=== PATIENT | male | born 1960 | race African-American/Black ===

== ENCOUNTER 2017-02-26 15:23 | Emergency (ER) | payer OTHER ==
[~2017-02-26] VITALS: Ht 182.9 cm; Wt 125.7 kg
[~2017-02-26 15:23] MED LIST: ALBUTEROL2.5 MG/0.5 INH; ALLOPURINOL 30300 M2 PO; AMLODIPINE BESY10 MG PO; BRIMONIDINE TAR1 BO1 OP; CLONIDINE HCL0.3 M3 PO; COREG25 MG PO; DORZOLAMIDE HCL10 ML OP; HYDRALAZINE 2525 MG PO; LIPITOR 20 MG T20 M1 PO; METFORMIN HCL500 MG PO; TRAVATAN Z2.5 ML OPHTHALMIC; VASOTEC10 MG PO
[2017-02-26] MEDS ORDERED: VENTOLIN HFA 1818 GM INH (16:27)
[2017-02-26] MEDS ORDERED: ALBUTEROL2.5 MG/31 INH (16:27)
[2017-02-26] MEDS ORDERED: TESSALON PERLE100 MG PO (16:31)
== END 2017-02-26 17:20 | disposition home or self-care (01) ==
LOC: ER 15:23
DX: J06.9 Acute upper respiratory infection, unspecified (principal); I10 Essential (primary) hypertension; E11.9 Type 2 diabetes mellitus without complications; E78.00 Pure hypercholesterolemia, unspecified

== ENCOUNTER 2019-02-22 15:45 | Emergency (ER) | payer OTHER ==
[~2019-02-22] VITALS: Ht 182.9 cm; Wt 127.0 kg
[~2019-02-22 15:45] MED LIST changes: +ALBUTEROL2.5 MG/31 INH; +TESSALON PERLE100 MG PO; +VENTOLIN HFA 1818 GM INH
[2019-02-22] MEDS ORDERED: AUGMENTIN 875-1 EACH PO (17:10)
[2019-02-22] MEDS ORDERED: VENTOLIN HFA 1818 GM INH (17:32)
[2019-02-22 17:49] VITALS: BP 141/83
== END 2019-02-22 17:50 | disposition home or self-care (01) ==
LOC: ER 15:45
DX: J06.9 Acute upper respiratory infection, unspecified (principal); J20.9 Acute bronchitis, unspecified; I10 Essential (primary) hypertension; E11.9 Type 2 diabetes mellitus without complications; E78.5 Hyperlipidemia, unspecified; E78.00 Pure hypercholesterolemia, unspecified

== ENCOUNTER 2019-03-29 17:18 | Inpatient (IN) | payer OTHER ==
[~2019-03-29] VITALS: Ht 182.9 cm; Wt 127.0 kg
--- NOTE | ~2019-03-29 | HC ---
[facility] [place] [address] CONSULTATION Name: NANY LAW Room #: 438-P ADM IN M.R.#: [id number] Admission: 03/29/19 Attend Phys: Irving Rowland Discharge: Date of : 58 Report #: [id number] THIS REPORT FOR: //name// CC: Irving Connolly DATE OF SERVICE: 03/30/2019 HISTORY OF PRESENT ILLNESS: This is a 58-year-old male patient who was seen by me for generalized weakness. History is very poor, both from the patient as well as from the mother. I had seen this patient in the Emergency Room yesterday and I saw this patient today and this is the combined note. He also has edema of both lower extremities. REVIEW OF SYSTEMS: Indicates that this patient has a retinitis pigmentosa which is hereditary and other members of the family has the same. He has a history of hypertension and bronchitis. He is blind. A 14-point review of system was carried out and I am not sure how much weakness is new and how much is old. Otherwise, the history is as described above. PAST MEDICAL HISTORY: Positive for retinitis pigmentosa. FAMILY HISTORY: Positive for retinitis pigmentosa. SOCIAL HISTORY: He lives with his mother. PHYSICAL EXAMINATION: The patient's examination indicate he is alert. He is responsive. He can move all four extremities. His position sense appeared to be intact. There is no meningeal sign. Reflexes appeared to be present. Blood pressure is 173/86, it has been high, respirations 18, pulse is 75. LABORATORY DATA: Indicate hemoglobin of 9.6. His GFR is 58. DIAGNOSTIC DATA: His CT scan has shown question of stroke, but we did an MRI and that does not show any stroke, which is acute. IMPRESSION: I am not sure what the etiology of the patient's weakness in the lower extremities is. He looks about the same as he was last night. Anemia may be playing a part in it. We will check the spine. Spine does have some arthritis, but I am not sure how much it is contributing to her symptoms. We will get an MRI. I do not think the doubt for Guillain-Coalton is very high, but cannot be excluded. I talked to him about the spinal tap and he is not much interested in that, but I will talk to the mom also tomorrow. He will also need checking of a CPK, myasthenia markers to complete the workup. [facility] [address] [place] [address] CONSULTATION Name: NANY LAW Room #: 438-P ADM IN M.R.#: [id number] Admission: 03/29/19 Attend Phys: Irving Rowland Discharge: Date of : 58 Report #: [id number] Time spent about 50 minutes, majority counseling and coordinating. By: [id number] Danie Mayorga MD /nt
--- NOTE | ~2019-03-29 | HC ---
[facility] [place] [address] CONSULTATION Name: NANY LAW Room #: 438-P ADM IN M.R.#: [id number] Admission: 03/29/19 Attend Phys: Irving Rowland Discharge: Date of : 58 Report #: [id number] THIS REPORT FOR: //name// CC: Irving Connolly DATE OF SERVICE: 03/30/2019 HISTORY OF PRESENT ILLNESS: The patient is a 58-year-old -[place] male who was admitted with worsening functional mobility, difficult walking, left leg burning, several falls along with bilateral lower extremity swelling and lower extremity weakness. CT scan showed an age indeterminate left lacunar infarct. He also has acute renal insufficiency superimposed on chronic kidney disease. He has bilateral lower extremity edema, question chronic lymphedema versus venous insufficiency. He is to have an MRI of the brain. PAST MEDICAL HISTORY: Retinitis pigmentosa, diabetes mellitus, hypertension, hyperlipidemia, chronic kidney disease, bronchitis, and exogenous obesity. He is noted to be complete blindness with the retinitis pigmentosa. MEDICATIONS: Please see the full medication listing. ALLERGIES: No known drug allergies. SOCIAL HISTORY: Lives with his mother and 2 sisters who also apparently have retinitis pigmentosa, was premorbidly ambulatory without gait aids including going up and down steps, but again has had a significant decline just prior to his acute hospital admission. REVIEW OF SYSTEMS: Complaints regarding his lower extremity swelling. No current chest pain, shortness of breath, or abdominal discomfort. PHYSICAL EXAMINATION: VITAL SIGNS: Last recorded temperature 98.4, pulse 72, respirations 18, blood pressure 160/78. GENERAL: A 58-year-old obese -[place] male, in no obvious distress. The patient is alert. He has obvious ocular abnormalities consistent with his retinitis. He follows basic commands. HEENT: Facies otherwise appeared symmetric. EXTREMITIES: Functional range of motion of both upper extremities, strength is probably a grade 4-/5. DTRs are trace to 1. Lower extremity, he does have significant distal lower extremity edema. Would grade it at 2+. Appears to have some weakness of the right lower extremity, maybe grade 4-/5 to 4/5. Left lower extremity is a grade 4+/5. NEUROLOGIC: Functionally, he was mod assist sit to stand. Gait was max assist to 18 feet, handheld assistance. [address] [address] CONSULTATION Name: NANY LAW Room #: 438-P [facility] IN M.R.#: [id number] Admission: 03/29/19 Attend Phys: Irving Rowland Discharge: Date of : 58 Report #: [id number] ASSESSMENT: A 58-year-old -[place] male with the following problem list: 1. Left lacunar infarct noted to be age indeterminate. 2. Bilateral lower extremity edema. 3. Acute renal insufficiency superimposed on chronic kidney disease. 4. Retinitis pigmentosa assist with complete blindness. 5. Exogenous obesity. 6. Diabetes mellitus. 7. Hypertension. 8. Elevated cholesterol. PLAN: Plan further evaluation is underway. Note, he is scheduled to have an MRI scan of his brain as well as ultrasound of his carotids. He certainly may benefit from an acute in-hospital inpatient rehabilitation stay as he medically stabilizes. We will be glad to follow along with you regarding his rehab therapy needs. By: [id number] Jerad Pineda MD /PMT
[~2019-03-29 17:18] MED LIST changes: +AUGMENTIN 875-1 EACH PO
[2019-03-29 17:38] VITALS: BP 147/72
[2019-03-29 18:01] LABS: ABSOLUTE NEUTROPHILS 5.9 thou/uL (1.4-8.2); BASOPHILS 0.6 % (0.0-2.0); EOSINOPHILS 2.2 % (0.0-3.0); HEMATOCRIT 31.8 % (42.0-52.0); HEMOGLOBIN 10.3 gm/dL (14.0-18.0); MCH 29.5 pg (26.0-34.0); MCHC 32.5 g/dL (28.0-37.0); MCV 90.6 fL (80.0-100.0); PLATELET COUNT 375 thou/uL (150-400); POLYS 65.2 % (36.0-66.0); RBC 3.51 mil/uL (4.50-6.00); WBC 9.1 thou/uL (4.0-11.0)
[2019-03-29 18:10] LABS: ANION GAP 9 mmol/L (7-16); BUN 29 mg/dL (7-18); CALCIUM 9.9 mg/dL (8.5-10.1); CHLORIDE 100 mmol/L (98-107); CO2 26 mmol/L (21-32); CREATININE 1.8 mg/dL (0.7-1.3); GLUCOSE 163 mg/dL (74-106); POTASSIUM 4.5 mmol/L (3.5-5.1); SODIUM 135 mmol/L (136-145)
[2019-03-29 18:19] LABS: TROPONIN-I <0.06 ng/mL (<0.06)
[2019-03-29 19:11] LABS: URINE BILIRUBIN NEGATIVE (Negative); URINE BLOOD NEGATIVE (Negative); URINE CLARITY CLEAR; URINE COLOR YELLOW; URINE GLUCOSE-RANDOM* NEGATIVE (Negative); URINE KETONES NEGATIVE (Negative); URINE LEUKOCYTES-REFLEX NEGATIVE (Negative); URINE NITRITE-REFLEX NEGATIVE (Negative); URINE PROTEIN (DIPSTICK) NEGATIVE (Negative); URINE UROBILINOGEN 0.2 E.U./dl (0.2-1.0)
[2019-03-29 21:47] VITALS: BP 154/81
--- NOTE | 2019-03-29 22:16 | NUR ---
HAND OFF SENT TO FLOOR
[2019-03-29 22:40] VITALS: BP 154/81
[2019-03-29 22:41] VITALS: BP 145/84
[2019-03-30] MEDS ORDERED: FUROSEMIDE 40 M40 MG PO (01:04)
--- NOTE | 2019-03-30 02:02 | NUR ---
PT ARRIVED ON THE UNIT @2300 MOM AT BEDSIDE FOR THE NIGHT.A&OX4 WITH BILATERAL VISSION LOSS. ADMISSION DONE AND DOC. BLE EDEMA NOTED 4+ NON PITTING. SCD'S APPILED. PT ON BEDREST. IV INTACT IN RT A/C AND FLUIDS INFUSING. URINAL AT BEDSIDE. FALL PREC INPLACE AND HOURLY ROUNDING DONE WILL CONT WITH POC TILL EOS
[2019-03-30 03:15] VITALS: BP 163/93
[2019-03-30 05:15] LABS: HEMATOCRIT 29.7 % (42.0-52.0); HEMOGLOBIN 9.6 gm/dL (14.0-18.0); MCH 29.5 pg (26.0-34.0); MCHC 32.4 g/dL (28.0-37.0); RBC 3.27 mil/uL (4.50-6.00); RDW 15.1 % (10.5-14.5); WBC 8.1 thou/uL (4.0-11.0)
[2019-03-30 05:23] LABS: ALBUMIN 3.3 g/dL (3.4-5.0); CALCIUM 9.4 mg/dL (8.5-10.1); CREATININE 1.5 mg/dL (0.7-1.3); POTASSIUM 3.7 mmol/L (3.5-5.1); TOTAL BILIRUBIN 0.5 mg/dL (<0.1-1.0); TOTAL PROTEIN 7.3 g/dL (6.4-8.2)
--- NOTE | 2019-03-30 08:08 | EKG ---
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
[2019-03-30 08:15] VITALS: BP 160/86
--- NOTE | 2019-03-30 10:16 | NUR ---
PT CARE ASSUMED AT 0700. A&Ox4. MOTHER IN ROOM AT ALL TIME. MOTHER IS MAIN GAMMA FACILITIES OPERATOR OF PT AND TWO SISTERS THAT HAVE THE SAME CONDITION. PT. FLUIDS WERE DISCONTINUED. IV PATENT WITH NO REDNESS OR EDEMA. PT ON BEDREST UNTIL PT EVALUATION. PT IS HAVING AND ECHO WITH BUBBLE STUDY, MRI, AND CAROTID ULTRA SOUND TODAY. RESULTS PENDING. BED IS IN LOW POSITION. LOCKED WITH BED ALARM ON. SCD'S IN PLACE.. ACHS WITH NO COVERAGE NEEDED. SMALL BM THIS MORNING.
--- NOTE | 2019-03-30 11:57 | 2DMMODE ---
[facility] [address] [place] [address] 2 D/M-MODE ECHOCARDIOGRAM Name: NAYN LAW Room #: 438-P ADM IN M.R.#: [id number] Admission: 03/29/19 Attend Phys: Irving Willingham Discharge: Date of : 58 Report #: [id number] THIS REPORT FOR: //name// APPROVED REPORT Study performed: 03/30/2019 09:34:18 EXAM: Comprehensive 2D, Doppler, and color-flow Echocardiogram Patient Location: Bedside Room #: [facility] Status: routine BSA: 2.46 HR: 75 bpm BP: 160/78 mmHg Rhythm: RBBB Other Information Study Quality: Adequate Technically limited study due to morbid obesity. Indications CVA Hx: DM, HTN, HLP, blind Echo Enhancing Agent Indication: Rule out Shunt Agent(s) / Amount(s) Used: Agitated Saline 6 cc 2D Dimensions RVDd: 39.48 mm IVSd: 12.20 (7-11mm) LVOT Diam: 19.94 (18-24mm) LVDd: 49.91 mm PWd: 12.35 (7-11mm) Ascending Ao: 31.55 (22-36mm) LVDs: 36.86 (25-40mm) Aortic Root: 31.35 mm Volumes Left Atrial Volume (Systole) Single Plane 4CH: 34.76 mL Single Plane 2CH: 56.62 mL LA ESV Index: 19.00 mL/m2 Aortic Valve AoV Peak Bill.: 1.62 m/s AO Peak Gr.: 10.50 mmHg LVOT Max P.88 mmHg [facility] [address] [place] [address] 2 D/M-MODE ECHOCARDIOGRAM Name: RADHABETHANYNANY GARZA Room #: 438-P [facility] IN .R.#: [id number] Admission: 03/29/19 Attend Phys: Irving Willingham Discharge: Date of : 58 Report #: [id number] LVOT Max V: 0.99 m/s MELISSA Vmax: 1.90 cm2 Mitral Valve E/A Ratio: 1.1 MV Decel. Time: 262.63 ms MV E Max Bill.: 0.91 m/s MV A Bill.: 0.83 m/s MV PHT: 76.16 ms IVRT: 83.04 ms Pulmonary Valve PV Peak Bill.: 1.09 m/s PV Peak Gr.: 4.79 mmHg Pulmonary Vein P Vein S: 0.46 m/s P Vein A: 0.32 m/s P Vein D: 0.29 m/s P Vein A Dur.: 76.1 msec P Vein S/D Ratio: 1.59 Tricuspid Valve RAP Estimate: 5.00 mmHg Left Ventricle The left ventricle is normal size. There is normal LV segmental wall motion. Mild concentric left ventricular hypertrophy. Left ventricular systolic function is normal. LVEF is 60-65%. Moderate diastolic dysfunction is present (pseudonormal filling). Right Ventricle The right ventricle is normal size. The right ventricular systolic function is normal. Atria The left atrium size is normal. No shunting noted with contrast bubble injection. The right atrium size is normal. Aortic Valve The aortic valve is normal in structure. No aortic regurgitation is present. There is no aortic valvular stenosis. Mitral Valve The mitral valve is normal in structure. There is no mitral valve regurgitation noted. No evidence of mitral valve stenosis. Tricuspid Valve Tricuspid valve is not well visualized. Unable to assess PA [facility] [address] [address] 2 D/M-MODE ECHOCARDIOGRAM Name: NANY LAW Room #: 438-P ADM IN M.R.#: [id number] Admission: 03/29/19 Attend Phys: Irving Willingham Discharge: Date of : 58 Report #: [id number] pressure. Pulmonic Valve Pulmonic valve is not well visualized. Great Vessels The aortic root is normal in size. The ascending aorta is normal in size. IVC is normal in size and collapses >50% with inspiration. Pericardium There is no pericardial effusion. <Conclusion> The left ventricle is normal size. Mild concentric left ventricular hypertrophy. Left ventricular systolic function is normal. The right ventricle is normal size. The left atrium size is normal. No shunting noted with contrast bubble injection. The aortic valve is normal in structure. There is no mitral valve regurgitation noted. <ELECTRONICALLY SIGNED> By: Lyndon Hernandez MD 03/30/19 1157 1157 1157 Lyndon Hernandez MD /INF
--- NOTE | 2019-03-30 11:59 | NUR ---
INITIAL ASSESSMENT: Pt evaluated for d/c planning needs. Reviewed chart and spoke with nurse, pt and pt's aunt. Pt is alert and oriented. Pt is blind and lives at home with his mother. Pt said he has a cane at home and was independent with ADL's. Pt is agreeable with referral to [facility]. Pt said he has not had home health in the past and has not been to rehab facility. Will remain available to assist as needed.
[2019-03-30 16:50] VITALS: BP 173/86
[2019-03-30] MEDS ORDERED: JANUMET 50-1,01 EACH PO (17:24)
[2019-03-30 19:17] VITALS: BP 169/86
[2019-03-31 00:09] LABS: GLYCOHEMOGLOBIN (HGB A1C) 5.6 % (4.8-5.6)
[2019-03-31 04:16] VITALS: BP 172/89
--- NOTE | 2019-03-31 05:16 | NUR ---
ASSUMED CARE OF PT @1900 PT ASSESSED AT START OF SHIFT A&OX4 BLIND IN BOTH EYES. MOM AT BEDSIDE FOR THE NIGHT. DENIES PAIN BUT COMPLAINES OF CONSTIPATION. ABDOMEN DISTENDED AND TIGHT. CALLED ONCALL AND MIRALAX ORDERED. PT HAD A BM TONIGHT. FALL PREC IN PLACE AND CALL LIGHT WITHIN REACH WILL CONT WITH POC TILL EOS.
[2019-03-31 09:19] VITALS: BP 164/76
[2019-03-31 09:32] VITALS: BP 164/76
[2019-03-31] MEDS ORDERED: SENNA-TIME S T1 EACH PO (09:50)
[2019-03-31] MEDS ORDERED: ASPIRIN325 PO (09:50)
--- NOTE | 2019-03-31 10:53 | NUR ---
Following for d/c planning needs. Pt evaluated and accepted by Rehab. Spoke with pt and mother. Both are in agreement with plan for pt to transfer to Rehab when medically stable.
--- NOTE | 2019-03-31 14:10 | NUR ---
ASSUMED CARE AT 0700, SHIFT ASSESSMENT DONE, MEDS GIVEN, VSS. DENIE ANY [place], VOMITING, PAIN. WENT FOR MRI THIS AM. PT AND OT CONSULT. BLIND ON BOTH EYES. PER MOM, PT CANNOT GET INSULIN, HAS A HOME MED THAT HE TAKES FOR DIABETES. DISCHARGTE ORDER RECEIVED FOR INPATIENT REHAB, [facility]. AWAITING FOR REHAB TO CALL REGARDING DISCHARGE.
== END 2019-03-31 16:09 | DRG 69 ==
LOC: ER 17:18 → 4S 21:40 → EROBS 21:40 → 4S 21:40
PROVIDERS: Nurse Practitioner; Nurse Practitioner Family; ADMIT Hospitalist
DX: G45.9 Transient cerebral ischemic attack, unspecified (principal); N17.0 Acute kidney failure with tubular necrosis; G61.0 Guillain-Barre syndrome; E78.00 Pure hypercholesterolemia, unspecified; M19.90 Unspecified osteoarthritis, unspecified site; E78.5 Hyperlipidemia, unspecified; I12.9 Hypertensive chronic kidney disease with stage 1 through stage 4 chronic kidney disease, or unspecified chronic kidney disease; E11.22 Type 2 diabetes mellitus with diabetic chronic kidney disease; N18.9 Chronic kidney disease, unspecified; I87.2 Venous insufficiency (chronic) (peripheral); I89.0 Lymphedema, not elsewhere classified; Z79.82 Long term (current) use of aspirin; Z79.899 Other long term (current) drug therapy
CPT/HCPCS: 10100; 10195

== ENCOUNTER 2019-03-31 14:01 | Inpatient (IN) | payer OTHER ==
[~2019-03-31] VITALS: Ht 180.3 cm; Wt 126.1 kg
[~2019-03-31 14:01] MED LIST changes: +ASPIRIN325 PO; +FUROSEMIDE 40 M40 MG PO; +JANUMET 50-1,01 EACH PO; +SENNA-TIME S T1 EACH PO
[2019-03-31 15:30] VITALS: BP 163/77
[2019-03-31 21:20] VITALS: BP 129/67
[2019-04-01 05:03] LABS: HEMATOCRIT 30.7 % (42.0-52.0); HEMOGLOBIN 9.9 gm/dL (14.0-18.0); MCH 29.3 pg (26.0-34.0); MCHC 32.1 g/dL (28.0-37.0); MCV 91.3 fL (80.0-100.0); RBC 3.36 mil/uL (4.50-6.00); RDW 15.5 % (10.5-14.5); WBC 10.1 thou/uL (4.0-11.0)
[2019-04-01 05:16] LABS: CALCIUM 9.5 mg/dL (8.5-10.1); CREATININE 1.6 mg/dL (0.7-1.3)
[2019-04-01 05:18] LABS: POTASSIUM 2.4 mmol/L (3.5-5.1)
[2019-04-01 08:26] VITALS: BP 158/62
[2019-04-01 20:00] VITALS: BP 151/79
[2019-04-02 04:48] LABS: CALCIUM 9.3 mg/dL (8.5-10.1); CREATININE 1.4 mg/dL (0.7-1.3)
[2019-04-02 04:52] LABS: POTASSIUM 2.9 mmol/L (3.5-5.1)
[2019-04-02 08:00] VITALS: BP 161/86
[2019-04-02 09:50] VITALS: BP 194/96
[2019-04-02 19:53] VITALS: BP 175/82
[2019-04-03 04:37] LABS: CALCIUM 9.7 mg/dL (8.5-10.1); CREATININE 1.5 mg/dL (0.7-1.3); POTASSIUM 3.2 mmol/L (3.5-5.1)
[2019-04-03 08:00] VITALS: BP 165/91
[2019-04-03 19:17] VITALS: BP 150/78
[2019-04-04 08:00] VITALS: BP 162/95
[2019-04-04 15:00] VITALS: BP 140/79
[2019-04-04 19:10] VITALS: BP 154/87
[2019-04-05 08:15] VITALS: BP 153/83
[2019-04-06 07:55] VITALS: BP 172/91
[2019-04-06 17:10] VITALS: BP 162/92
[2019-04-06 20:10] VITALS: BP 188/95
[2019-04-07 09:30] VITALS: BP 194/102
[2019-04-07 17:41] VITALS: BP 162/91
[2019-04-07 19:45] VITALS: BP 163/90
[2019-04-08 09:00] VITALS: BP 199/100
[2019-04-08 10:40] VITALS: BP 145/85
[2019-04-08 19:22] VITALS: BP 183/87
[2019-04-09 09:00] VITALS: BP 167/75
[2019-04-09 20:05] VITALS: BP 160/93
[2019-04-10 08:07] VITALS: BP 145/88
[2019-04-10 18:34] VITALS: BP 156/83
[2019-04-10 19:25] VITALS: BP 126/74
[2019-04-11 06:27] LABS: CALCIUM 9.9 mg/dL (8.5-10.1); CREATININE 1.6 mg/dL (0.7-1.3); POTASSIUM 3.3 mmol/L (3.5-5.1)
[2019-04-11 08:52] VITALS: BP 173/79
[2019-04-11 16:47] VITALS: BP 160/83
[2019-04-11 19:48] VITALS: BP 161/91
[2019-04-12 07:41] VITALS: BP 167/94
[2019-04-12 19:33] VITALS: BP 166/82
[2019-04-13 09:00] VITALS: BP 110/64
[2019-04-13 19:38] VITALS: BP 129/84
[2019-04-14 07:57] VITALS: BP 185/87
[2019-04-14 11:00] VITALS: BP 141/85
[2019-04-14 20:13] VITALS: BP 164/93
[2019-04-15 03:07] LABS: IgA 394 mg/dL (90-386); IgG 1330 mg/dL (700-1600); IgM 317 mg/dL (20-172)
[2019-04-15 08:00] VITALS: BP 169/85
--- NOTE | 2019-04-15 11:11 | PLAN ---
[facility] [place] [address] REHAB UNIT PLAN OF CARE Name: NANY LAW Room #: 515-P ADM IN M.R.#: [id number] Admission: 03/31/19 Attend Phys: Jerad Pineda MD Discharge: Date of : 58 Report #: [id number] THIS REPORT FOR: //name// CC: Jerad Connolly DATE OF SERVICE: 04/02/2019 PROGRESS NOTE/OVERALL PLAN OF CARE SUBJECTIVE: The patient was seen back earlier in followup. He is in no distress. Temperature 36.7, pulse 86, respirations 20, blood pressure 194/96. He has been cooperative, working in therapies. Transfers have been mod assist. Gait mod assist front-wheeled walker. He has ambulated up to 6 feet. In occupational therapy, he is min assist for lower body dressing. Cognition is hurx-cn-gxbyldyu impairment. Memory is functional. ASSESSMENT: 1. Lumbar radiculopathy with bilateral lower extremity weakness. 2. Age-indeterminate lacunar infarct. 3. Recurrent falls. 4. Hypokalemia. 5. Acute renal insufficiency and chronic kidney disease. 6. Bilateral lower extremity edema. 7. Hypertension. 8. Type 2 diabetes mellitus. 9. Hyperlipidemia. 10. Legally blind with retinitis pigmentosa. 11. Obesity. PLAN: The overall plan of care is based on the preadmission screen, post-admission physician evaluation and information garnered from therapy assessments. 1. Estimated length of stay is probably at least 7-14 days pending progress. 2. Medical prognosis is reasonably good. 3. Anticipated interventions includes the interdisciplinary acute inpatient rehabilitation program. 4. Anticipated functional outcomes would be for the patient to become modified independent, ideally without any gait aids, but will need to see how he does as far as his functional progress, also to improve further as far as any cognition deficits are noted. 5. Discharge destination would be back home with his mother in the home setting as noted. 6. Expected therapy by discipline includes PT, OT and Speech 1 hour per day [address] [address] REHAB UNIT PLAN OF CARE Name: NANY LAW Room #: 515-P [facility] IN M.R.#: [id number] Admission: 03/31/19 Attend Phys: Jerad Pineda MD Discharge: Date of : 58 Report #: [id number] each 5 days a week. He is not keen on the speech therapy, we may need to taper that and focus more just on the PT and OT. We will need to see how he does. <ELECTRONICALLY SIGNED> By: Jerad Pineda MD 04/15/19 1111 1350 0229 Jerad Pineda MD /nt
--- NOTE | 2019-04-15 11:11 | H ---
[facility] [place] [address] HISTORY AND PHYSICAL Name: NANY LAW Room #: 515-P ADM IN M.R.#: [id number] Admission: 03/31/19 Attend Phys: Jerad Pineda MD Discharge: Date of : 58 Report #: [id number] THIS REPORT FOR: //name// CC: Jerad Connolly DATE OF SERVICE: 03/31/2019 HISTORY AND PHYSICAL/POST-ADMISSION PHYSICIAN EVALUATION HISTORY OF PRESENT ILLNESS: The patient is a 58-year-old -Maltese male with complete blindness with retinitis pigmentosa, who was originally admitted on 03/29/2019 with worsening functional mobility, difficulty walking, left leg burning, several falls along with bilateral lower extremity swelling and lower extremity weakness. CT of the head showed an age indeterminate left lacunar infarct, although this did not show up on MRI of the brain. He was seen by Neurology, was thought to have a lumbar radiculopathy with lower extremity weakness; although, there was a question of possible Guillain-Mitchell? syndrome with recommendation for a lumbar puncture, but his mother did not want the Neurology service to proceed with a spinal tap for the time being. Plan is to proceed with inpatient rehabilitation and we will see how he does from a functional perspective. He also has bilateral lower extremity edema, question chronic lymphedema versus venous insufficiency and is on oral diuretics. As far as his prior medical history, social history, habits: Please see my prior consultation and the history and physical. MEDICATIONS: Please see the medication listing. REVIEW OF SYSTEMS: No current complaints of chest pain, shortness of breath or abdominal discomfort. PHYSICAL EXAMINATION: GENERAL: A 58-year-old obese -Maltese male, in no obvious distress. He is legally blind, significantly obese. HEENT: Facies otherwise appeared symmetric. CHEST: Sounded clear to auscultation. CARDIOVASCULAR: Regular rate and rhythm. ABDOMEN: Obese, bowel sounds positive, nontender. GENITOURINARY AND RECTAL: Deferred. He does have 3+ lower extremity edema bilaterally. Lower extremities strength is probably a grade 4-/5. Upper extremity strength is probably 4-/5. Functionally, he has been max assist coming to stand. He is only able to ambulate a couple of steps max assist of two. ASSESSMENT: A 58-year-old -Maltese male with the following problem [address] [address] HISTORY AND PHYSICAL Name: NANY LAW Room #: 515-P [facility] IN M.R.#: [id number] Admission: 03/31/19 Attend Phys: Jerad Pineda MD Discharge: Date of : 58 Report #: [id number] list: 1. Lumbar radiculopathy with lower extremity weakness. 2. Indeterminate age, left lacunar infarct, not confirmed on MRI. 3. Question of Guillain-Mitchell? syndrome, held off on the lumbar puncture as noted. 4. Bilateral lower extremity edema. 5. Acute renal insufficiency superimposed on chronic kidney disease. 6. Diabetes mellitus. 7. Hypertension. 8. Hyperlipidemia. 9. Significant obesity. 10. Premorbidly blind with retinitis pigmentosa. Again, please see the history and physical, I agree with the documentation examination, assessment and plan. PLAN: The patient has been admitted for acute in-hospital inpatient rehabilitation. From a postadmission physician evaluation perspective, there are no relevant changes since the preadmission screening. Please see the above review of prior and current medical and functional conditions and comorbidities. Please see the patient's previous and current functional status. As far as risk of complications, the patient has multiple medical comorbidities as noted above. Initial plan of care involves the interdisciplinary acute inpatient rehabilitation program. Measurable functional goals would be for the patient to become modified independent with transfers, mobility and ADLs or at least to achieve a level that he was able to be at prior. Prognosis is reasonably good with estimated length of stay probably fairly long with his lower functional level. Would anticipate at least 2-3 weeks. Potential barriers would include his multiple medical comorbidities and decreased functional status. <ELECTRONICALLY SIGNED> By: Jerad Pineda MD 04/15/19 1111 1057 1148 Jerad Pineda MD /nt
[2019-04-15 19:50] VITALS: BP 153/83
[2019-04-16 08:00] VITALS: BP 144/92
[2019-04-16 20:00] VITALS: BP 137/71
[2019-04-17 08:00] VITALS: BP 145/78
[2019-04-17 19:43] VITALS: BP 157/79
[2019-04-18 10:17] VITALS: BP 143/89
[2019-04-18 19:10] VITALS: BP 126/65
[2019-04-19 05:53] LABS: ABSOLUTE NEUTROPHILS 4.4 thou/uL (1.4-8.2); BASOPHILS 0.6 % (0.0-2.0); EOSINOPHILS 1.9 % (0.0-3.0); HEMATOCRIT 30.9 % (42.0-52.0); HEMOGLOBIN 9.8 gm/dL (14.0-18.0); LYMPHOCYTES 31.2 % (24.0-44.0); MCH 28.9 pg (26.0-34.0); MCHC 31.8 g/dL (28.0-37.0); MCV 90.6 fL (80.0-100.0); MONOCYTES 10.5 % (1.0-8.0); PLATELET COUNT 405 thou/uL (150-400); POLYS 55.8 % (36.0-66.0); RBC 3.41 mil/uL (4.50-6.00); RDW 15.4 % (10.5-14.5); WBC 7.9 thou/uL (4.0-11.0)
[2019-04-19 06:22] LABS: CALCIUM 9.5 mg/dL (8.5-10.1); CREATININE 1.6 mg/dL (0.7-1.3); MAGNESIUM 1.7 mg/dL (1.8-2.4); POTASSIUM 3.5 mmol/L (3.5-5.1)
[2019-04-19 08:00] VITALS: BP 138/77
[2019-04-19 19:25] VITALS: BP 144/71
[2019-04-20 07:51] VITALS: BP 144/79
[2019-04-20 19:35] VITALS: BP 157/92
[2019-04-21 08:22] VITALS: BP 157/92
[2019-04-21 09:06] VITALS: BP 143/77
[2019-04-22 05:56] LABS: HEMATOCRIT 31.1 % (42.0-52.0); HEMOGLOBIN 9.9 gm/dL (14.0-18.0); MCH 28.7 pg (26.0-34.0); MCHC 31.9 g/dL (28.0-37.0); MCV 89.9 fL (80.0-100.0); RBC 3.46 mil/uL (4.50-6.00); WBC 7.6 thou/uL (4.0-11.0)
[2019-04-22 09:00] VITALS: BP 145/84
[2019-04-22 10:16] LABS: CALCIUM 9.7 mg/dL (8.5-10.1); CREATININE 1.4 mg/dL (0.7-1.3); MAGNESIUM 1.7 mg/dL (1.8-2.4); POTASSIUM 4.1 mmol/L (3.5-5.1)
[2019-04-22 13:36] VITALS: BP 134/79
[2019-04-22 19:21] VITALS: BP 147/90
[2019-04-23 07:46] VITALS: BP 161/93
[2019-04-23 19:40] VITALS: BP 137/88
[2019-04-24 03:57] LABS: CALCIUM 9.9 mg/dL (8.5-10.1); CREATININE 1.8 mg/dL (0.7-1.3); MAGNESIUM 2.3 mg/dL (1.8-2.4)
[2019-04-24 03:59] LABS: ABSOLUTE NEUTROPHILS 4.9 thou/uL (1.4-8.2); BASOPHILS 0.4 % (0.0-2.0); HEMATOCRIT 31.8 % (42.0-52.0); HEMOGLOBIN 10.4 gm/dL (14.0-18.0); LYMPHOCYTES 24.2 % (24.0-44.0); MCH 29.3 pg (26.0-34.0); MCHC 32.6 g/dL (28.0-37.0); MCV 89.8 fL (80.0-100.0); MONOCYTES 10.1 % (1.0-8.0); PLATELET COUNT 441 thou/uL (150-400); POLYS 64.3 % (36.0-66.0); RBC 3.54 mil/uL (4.50-6.00); RDW 15.1 % (10.5-14.5); WBC 7.6 thou/uL (4.0-11.0)
[2019-04-24 08:52] VITALS: BP 149/84
[2019-04-24 20:04] VITALS: BP 133/71
[2019-04-25 05:31] LABS: HEMATOCRIT 32.2 % (42.0-52.0); HEMOGLOBIN 10.3 gm/dL (14.0-18.0); MCH 28.7 pg (26.0-34.0); MCHC 31.9 g/dL (28.0-37.0); MCV 89.8 fL (80.0-100.0); RBC 3.59 mil/uL (4.50-6.00); RDW 15.3 % (10.5-14.5); WBC 6.8 thou/uL (4.0-11.0)
[2019-04-25 05:38] LABS: CREATININE 1.6 mg/dL (0.7-1.3); MAGNESIUM 2.6 mg/dL (1.8-2.4); POTASSIUM 3.8 mmol/L (3.5-5.1)
[2019-04-25 07:45] VITALS: BP 128/73
[2019-04-25 19:38] VITALS: BP 144/82
[2019-04-26 08:00] VITALS: BP 152/88
[2019-04-26] MEDS ORDERED: SENNA-TIME S T1 EACH PO (08:49)
[2019-04-26] MEDS ORDERED: VITAMIN D32000 UNIT PO (08:49)
[2019-04-26] MEDS ORDERED: PROBIOTIC1 EAC1 PO (08:49)
[2019-04-26 14:16] VITALS: BP 157/92
[2019-04-26 14:22] VITALS: BP 157/92
[2019-04-26 16:29] VITALS: BP 157/92
== END 2019-04-26 16:31 | disposition home health service (06) | DRG 552 ==
PROVIDERS: Hospitalist; Internal Medicine; Nurse Practitioner; Nurse Practitioner Family; Psychiatry & Neurology Neuromuscular Medicine; ADMIT Physical Medicine & Rehabilitation
DX: M54.16 Radiculopathy, lumbar region (principal); N17.9 Acute kidney failure, unspecified; E87.6 Hypokalemia; N18.9 Chronic kidney disease, unspecified; I12.9 Hypertensive chronic kidney disease with stage 1 through stage 4 chronic kidney disease, or unspecified chronic kidney disease; E11.22 Type 2 diabetes mellitus with diabetic chronic kidney disease; E78.5 Hyperlipidemia, unspecified; E66.9 Obesity, unspecified; Z68.38 Body mass index [BMI] 38.0-38.9, adult; H54.8 Legal blindness, as defined in USA; H35.52 Pigmentary retinal dystrophy; E78.00 Pure hypercholesterolemia, unspecified; R27.0 Ataxia, unspecified; R29.2 Abnormal reflex; E55.9 Vitamin D deficiency, unspecified
CPT/HCPCS: 10112

== ENCOUNTER 2019-05-11 16:35 | Emergency (ER) | payer OTHER ==
[~2019-05-11] VITALS: Ht 182.9 cm; Wt 127.0 kg
--- NOTE | ~2019-05-11 | EKG ---
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
[~2019-05-11 16:35] MED LIST changes: +PROBIOTIC1 EAC1 PO; +VITAMIN D32000 UNIT PO
[2019-05-11 17:58] LABS: ABSOLUTE NEUTROPHILS 6.4 thou/uL (1.4-8.2); BASOPHILS 0.4 % (0.0-2.0); EOSINOPHILS 2.4 % (0.0-3.0); HEMATOCRIT 32.8 % (42.0-52.0); HEMOGLOBIN 10.4 gm/dL (14.0-18.0); LYMPHOCYTES 19.3 % (24.0-44.0); MCH 29.2 pg (26.0-34.0); MCHC 31.7 g/dL (28.0-37.0); MCV 92.3 fL (80.0-100.0); MONOCYTES 9.7 % (1.0-8.0); PLATELET COUNT 326 thou/uL (150-400); POLYS 68.2 % (36.0-66.0); RBC 3.55 mil/uL (4.50-6.00); RDW 15.9 % (10.5-14.5); WBC 9.3 thou/uL (4.0-11.0)
[2019-05-11 18:12] LABS: URINE BILIRUBIN NEGATIVE (Negative); URINE BLOOD NEGATIVE (Negative); URINE CLARITY CLEAR; URINE COLOR YELLOW; URINE GLUCOSE-RANDOM* NEGATIVE (Negative); URINE KETONES NEGATIVE (Negative); URINE LEUKOCYTES-REFLEX NEGATIVE (Negative); URINE NITRITE-REFLEX NEGATIVE (Negative); URINE PROTEIN (DIPSTICK) NEGATIVE (Negative); URINE UROBILINOGEN 0.2 E.U./dl (0.2-1.0)
[2019-05-11 18:37] LABS: ANION GAP 9 mmol/L (7-16); BUN 20 mg/dL (7-18); CALCIUM 9.3 mg/dL (8.5-10.1); CHLORIDE 104 mmol/L (98-107); CO2 26 mmol/L (21-32); CREATININE 1.6 mg/dL (0.7-1.3); GLUCOSE 85 mg/dL (74-106); POTASSIUM 3.8 mmol/L (3.5-5.1); SODIUM 139 mmol/L (136-145)
[2019-05-11 18:46] LABS: TROPONIN-I <0.06 ng/mL (<0.06)
[2019-05-11 19:45] VITALS: BP 133/74
== END 2019-05-11 20:00 | disposition home or self-care (01) ==
LOC: ER 16:35
PROVIDERS: Nurse Practitioner
DX: R53.1 Weakness (principal); I10 Essential (primary) hypertension; E11.9 Type 2 diabetes mellitus without complications; E78.00 Pure hypercholesterolemia, unspecified